=== PATIENT | male | born 1955 | race Caucasian/White ===

== ENCOUNTER 2023-06-28 11:00 | Outpatient (CLI) | payer MEDICARE, SELFPAY ==
--- NOTE | 2023-06-28 11:15 | FL_ITS ---
Patient: FANG VERMA Facility:?[facility] Patient ID:?[id number] Site Patient ID:?[id number] Site :?[id number] Study:?XRay-Abdomen Barium swallow modified READ-06/28/2023 11:46:03 AM Ordering Physician:LINDA LARA Final Report: INDICATION: PILL Dysphagia TECHNIQUE: Modified barium swallow. Fluoroscopic time 1 minute. FINDINGS/IMPRESSION: Anatomical structures are normal. Swallowing mechanism appears within normal limits. No episodes of penetration or aspiration. No significant findings. Dictated by Mike Bowen MD @ 06/28/2023 11:57:22 AM Signed by:?Mike Bowen MD @06/28/2023 11:57:22 AM (Electronic Signature)
== END 2023-06-28 11:01 | disposition home or self-care (01) ==
LOC: RAD 11:03
PROVIDERS: PCP Student in an Organized Health Care Education/Training Program; Visit Provider Student in an Organized Health Care Education/Training Program
DX: R13.10 Dysphagia, unspecified (principal)
CPT/HCPCS: 74230; 92611

== ENCOUNTER 2023-07-16 10:43 | Outpatient (CLI) | payer MEDICARE, SELFPAY ==
--- NOTE | 2023-07-16 11:56 | W.ANESCHARGE ---
Anesthesia Charges Start Date/Time Anesthesia Start Date: 07/16/23 Anesthesia Start Time: 11:50 Stop Date/Time Anesthesia Stop Date: 07/16/23 Anesthesia Stop Time: 12:10
--- NOTE | 2023-07-16 12:13 | W.ANESCHARGE ---
Anesthesia Charges Start Date/Time Anesthesia Start Date: 07/16/23 Anesthesia Start Time: 11:50 Stop Date/Time Anesthesia Stop Date: 07/16/23 Anesthesia Stop Time: 12:10
== END 2023-07-16 10:44 | disposition home or self-care (01) ==
LOC: OP CLINIC 10:44
PROVIDERS: PCP Student in an Organized Health Care Education/Training Program; Visit Provider Internal Medicine Gastroenterology
DX: R13.10 Dysphagia, unspecified (principal); K31.89 Other diseases of stomach and duodenum
CPT/HCPCS: 00731; 43239; 88305; J2704

== ENCOUNTER 2024-01-04 10:00 | Outpatient (RCR) | payer MEDICARE, SELFPAY | END 2024-04-11 09:43 | disposition home or self-care (01) | PROVIDERS: PCP Student in an Organized Health Care Education/Training Program; Visit Provider Physician Assistant | DX: M54.2 Cervicalgia (principal); M54.12 Radiculopathy, cervical region; M48.02 Spinal stenosis, cervical region; Z74.09 Other reduced mobility; R29.3 Abnormal posture; Z51.89 Encounter for other specified aftercare | CPT/HCPCS: 97110; 97140; 97161 ==

== ENCOUNTER 2024-03-14 10:00 | Outpatient (RCR) | payer MEDICARE, SELFPAY | END 2024-05-12 10:03 | disposition home or self-care (01) | PROVIDERS: PCP Student in an Organized Health Care Education/Training Program; Visit Provider Family Medicine | DX: M16.12 Unilateral primary osteoarthritis, left hip (principal); M47.816 Spondylosis without myelopathy or radiculopathy, lumbar region; M51.369 Other intervertebral disc degeneration, lumbar region without mention of lumbar back pain or lower extremity pain; M25.552 Pain in left hip; Z74.09 Other reduced mobility; Z51.89 Encounter for other specified aftercare | CPT/HCPCS: 97110; 97140; 97161 ==

== ENCOUNTER 2025-03-24 08:24 | Outpatient (CLI) | payer MEDICARE, SELFPAY | END 2025-03-24 08:25 | disposition home or self-care (01) | LOC: INJ CL 08:24 | PROVIDERS: PCP Student in an Organized Health Care Education/Training Program; Visit Provider Family Medicine | DX: M54.16 Radiculopathy, lumbar region (principal); M51.369 Other intervertebral disc degeneration, lumbar region without mention of lumbar back pain or lower extremity pain | CPT/HCPCS: 62323; J0702; Q9966 ==

== ENCOUNTER 2025-03-31 13:25 | Outpatient (CLI) | payer MEDICARE, SELFPAY ==
--- NOTE | 2025-03-31 13:45 | CRLHL7_ITS ---
For Patients: As a result of the Century Cures Act, medical imaging exams and procedure reports are released immediately into your electronic medical record. You may view this report before your referring provider. If you have questions, please contact your health care provider. INDICATION: Bilateral hearing loss. TECHNIQUE: Brain and temporal bone MRI without and with contrast. 15 cc of Dotarem gadolinium based intravenous contrast administered. COMPARISON : None. FINDINGS: Inner ears/membranous labyrinths: Within normal limits. Internal auditory canals: Within normal limits. Cerebellopontine angle cisterns: Within normal limits. Posterior fossa structures: Within normal limits. Temporal bones/mastoid air cells: Within normal limits. No evidence of acute ischemia. No evidence of acute or chronic intracranial blood products. No mass or pathologic intracranial enhancement. Scattered FLAIR hyperintensities within the supratentorial white matter, typical for chronic microvascular ischemic change. No hydrocephalus or extra-axial collections. The pituitary gland, parasellar structures and optic chiasm are normal. All the major intracranial vascular structures demonstrate normal flow-related signal. The orbital contents are normal. No calvarial or skull base marrow replacing process. No obstructive sinus disease. No extracranial soft tissue findings. IMPRESSION: 1. Normal appearance of the internal auditory pathways on high resolution imaging of the temporal bones. No mass or pathologic enhancement within the internal auditory canals or CPA cisterns. Normal appearance of the 7th/8th cranial nerves. 2. No acute infarction or other acute intracranial pathology. 3. No mass or pathologic intracranial enhancement. 4. Mild chronic microvascular ischemic changes within the supratentorial white matter. Dictated by Addison Tyson MD @ 04/01/2025 2:36:05 PM (Electronically Signed)
== END 2025-03-31 13:26 | disposition home or self-care (01) ==
LOC: MRI 13:26
PROVIDERS: PCP Student in an Organized Health Care Education/Training Program; Visit Provider Otolaryngology
DX: H91.8X3 Other specified hearing loss, bilateral (principal); I67.82 Cerebral ischemia
CPT/HCPCS: 70553; A9575